=== PATIENT | female | born 1985 | race Caucasian/White ===

== ENCOUNTER 2018-03-28 13:38 | Inpatient (IN) | payer BC ==
[2018-03-28 13:38] VITALS: BMI 30.2
[2018-03-28] MEDS ORDERED: Iohexol 240 (50 ml) PO STA (15:26)
[2018-03-28] MEDS ORDERED: Sodium Chloride 0.9% 1,000 ML IV STA (15:27)
[2018-03-28] MEDS ORDERED: Iohexol 240 (50 ml) ONE (15:46)
[2018-03-28 15:47] LABS: BASO # 0.1 K/uL (0.0-0.2); BASO % 0.3 % (0.0-2.0); HEMOGLOBIN 13.8 g/dL (12.0-16.0); LYMPH # 1.3 K/uL (1.0-4.3); LYMPH % 7.3 % (20.0-40.0); MEAN CELL VOLUME 85.8 fl (81.0-99.0); MEAN CORPUSCULAR HEMOGLOBIN 27.6 pg (27.0-31.0); MEAN CORPUSCULAR HGB CONC 32.2 g/dL (33.0-37.0); MEAN PLATELET VOLUME 7.2 fl (7.2-11.7); MONO # 0.8 K/uL (0.0-0.8); MONO % 4.2 % (0.0-10.0); NEUT % 88.2 % (50.0-75.0); PLATELET COUNT 332 K/uL (130-400); RBC 4.99 Mil/uL (3.80-5.20); RED CELL DISTRIBUTION WIDTH 13.4 % (11.5-14.5); WHITE BLOOD COUNT 18.1 K/uL (4.8-10.8)
[2018-03-28 16:18] LABS: BLOOD UREA NITROGEN 12 mg/dl (7-17); CALCIUM 9.8 mg/dL (8.4-10.2); GFR NON-AFRICAN AMERICAN > 60
[2018-03-28 16:20] LABS: LYMPHOCYTE 7 % (20-50); MONOCYTE 2 % (0-10); NEUTROPHIL 91 % (42-75); PLATELET ESTIMATE NORMAL (NORMAL); TOTAL CELLS COUNTED 100
[2018-03-28 16:24] LABS: ALB/GLOB RATIO 1.2 (1.0-2.1); ALBUMIN 4.7 g/dL (3.5-5.0); ALT/SGPT 26 U/L (9-52); AST/SGOT 36 U/L (14-36)
[2018-03-28 16:26] LABS: SQUAMOUS EPITHIAL 11 /hpf (0-5); URINE BACTERIA MANY (<OCC); URINE BILIRUBIN NEGATIVE (NEGATIVE); URINE BLOOD NEGATIVE (NEGATIVE); URINE CLARITY CLOUDY (Clear); URINE COLOR YELLOW (YELLOW); URINE GLUCOSE (UA) NEG (NEGATIVE); URINE HYALINE CAST 0-2 /hpf (0-2); URINE LEUKOCYTE ESTERASE NEG Leu/uL (Negative); URINE PROTEIN 30 mg/dL (NEGATIVE); URINE UROBILINOGEN 0.2-1.0 mg/dL (0.2-1.0)
[2018-03-28] MEDS ORDERED: Iohexol 300 100 ML IJ ONE (17:30)
[2018-03-28] MEDS ORDERED: Sodium Chloride 0.9% 50 ML IV ONE (17:31)
[2018-03-28] MEDS ORDERED: cefTRIAXone (Rocephin) 1 gm Inj ONE (18:11)
--- NOTE | 2018-03-28 18:50 | CT ---
Date of service: 03/28/2018 PROCEDURE: CT Abdomen and Pelvis with contrast HISTORY: vomiting, LLQ pain, diarrhea COMPARISON: None available. TECHNIQUE: CT scan of the abdomen and pelvis was performed after administration of intravenous contrast. Oral contrast was administered. Coronal and sagittal reformatted images were obtained. Contrast dose: 95 mL Omnipaque 300 Radiation dose: Total exam DLP = 335.99 mGy-cm. This CT exam was performed using one or more of the following dose reduction techniques: Automated exposure control, adjustment of the mA and/or kV according to patient size, and/or use of iterative reconstruction technique. FINDINGS: LOWER THORAX: The visualized lungs are clear. LIVER: Normal in size with homogeneous enhancement. No gross lesion or ductal dilatation. GALLBLADDER AND BILE DUCTS: Is well distended. No calcified gallstones, wall thickening or pericholecystic fluid. PANCREAS: Normal in size with homogeneous enhancement. No gross lesion or ductal dilatation. SPLEEN: Normal in size and appearance. ADRENALS: The right adrenal gland is normal. There is mild thickening of the left adrenal gland without discrete nodule. KIDNEYS AND URETERS: Normal in size with homogeneous enhancement. No hydronephrosis. No solid mass. VASCULATURE: No aortic aneurysm. There are no atherosclerotic aortic calcifications. BOWEL: There is a nonobstructing jejunal-jejunal intussusception in the right mid abdominal bowel loops. The distal small bowel loops are normal in caliber. The ascending colon is normal in caliber. There is mild circumferential mural thickening in the distal transverse and left hemicolon. No bowel obstruction. APPENDIX: Normal appendix. PERITONEUM: No free fluid. No free air. LYMPH NODES: No enlarged lymph nodes. BLADDER: Partially decompressed. REPRODUCTIVE: The uterus is normal in size. BONES: No acute fracture. Within normal limits for the patient's age. OTHER FINDINGS: None. IMPRESSION: 1. Apparent mild circumferential mural thickening in the distal transverse and left hemicolon is nonspecific and could be related to underdistention however nonspecific acute infectious/inflammatory colitis is also a consideration. Clinical follow-up is advised. 2. Non-obstructing jejunal-jejunal intussusception in the proximal jejunal loops in the right mid abdomen.
--- NOTE | 2018-03-28 19:11 | ED PDOC ---
HPI: Abdomen Time Seen by Provider: 03/28/18 14:02 Chief Complaint (Nursing): GI Problem Chief Complaint (Provider): Vomiting, abdominal cramping History Per: Patient History/Exam Limitations: no limitations Onset/Duration Of Symptoms: Days Outside of [place] travel?: No Current Symptoms Are (Timing): Still Present Additional Complaint(s): 32 yo female with history of migraines presents for evaluation of intermittent vomiting and abdominal cramping for 2 weeks. Pt states she has had similar in the past but does not last as long. Pt states she was seen at [facility] and prescribed zofran. Pt without fever/chills. PT states she was feeling a little better while using zofran and rcame to ER for evaluation of continued vomiting. Pt denies urinary symptoms Past Medical History Reviewed: Historical Data, Nursing Documentation, Vital Signs Vital Signs: Last Vital Signs Temp 98.5 F 03/28/18 13:48 Pulse 67 03/28/18 13:48 Resp 18 03/28/18 13:48 BP 128/79 03/28/18 13:48 Pulse Ox 98 03/28/18 13:48 - Medical History PMH: Bipolar Disorder, Migraine Denies: Chronic Kidney Disease - Surgical History Surgical History: No Surg Hx - Family History Family History: States: Unknown Family Hx - Immunization History Hx Influenza Vaccination: No Hx Pneumococcal Vaccination: No - Home Medications Home Medications: Ambulatory Orders Medication Instructions Recorded No Known Home Med 03/28/18 - Allergies Allergies/Adverse Reactions: Allergies Allergy/AdvReac Type Severity Reaction Status Date / Time No Known Allergies Allergy Verified 03/28/18 13:47 Review of Systems ROS Statement: Except As Marked, All Systems Reviewed And Found Negative Constitutional: Negative for: Fever, Chills, Sweats Cardiovascular: Negative for: Chest Pain, Palpitations Respiratory: Negative for: Cough, Shortness of Breath Gastrointestinal: Positive for: Nausea, Vomiting, Abdominal Pain. Negative for: Diarrhea Genitourinary Female: Negative for: Dysuria, Frequency, Hematuria, Vaginal Discharge, Vaginal Bleeding Physical Exam - Reviewed Nursing Documentation Reviewed: Yes Vital Signs Reviewed: Yes - Physical Exam Appears: Positive for: Well, Non-toxic, No Acute Distress Head Exam: Positive for: ATRAUMATIC, NORMAL INSPECTION, NORMOCEPHALIC Skin: Positive for: Normal Color, Warm, DRY Eye Exam: Positive for: Normal appearance ENT: Positive for: Normal ENT Inspection Neck: Positive for: Normal, Painless ROM Cardiovascular/Chest: Positive for: Regular Rate, Rhythm Respiratory: Positive for: Normal Breath Sounds. Negative for: Accessory Muscle Use, Respiratory Distress Gastrointestinal/Abdominal: Positive for: Normal Exam, Soft. Negative for: Tenderness (LLQ ), Guarding, Rebound, Hernia Back: Positive for: Normal Inspection Extremity: Positive for: Normal ROM Neurologic/Psych: Positive for: Alert, Oriented - Laboratory Results Result Diagrams: 03/28/18 14:47 03/28/18 14:47 - ECG O2 Sat by Pulse Oximetry: 98 Pulse Ox Interpretation: Normal Medical Decision Making Medical Decision Making: Intussusception and possible colitis on CT abdomen and pelvis. (+) many bacteria on urine exam 1914 - Discussed with Dr. Albarran, residential service technician. States she discussed with Dr. Lemos. 193 - Dr. Wood aware. 2029 - Dr. Whalen aware of case, NPO Disposition - Clinical Impression Clinical Impression: Intussusception intestine - Patient ED Disposition Is Patient to be Admitted: Yes - Disposition Disposition Time: 20:30 Condition: GOOD Instructions: Intussusception Forms: [employer] (Kinyarwanda)
--- NOTE | 2018-03-28 20:01 | CP.PCM.CON ---
<Mary Albarran - Last Filed: 03/28/18 19:56> History of Present Illness - History of Present Illness History of Present Illness: General Surgery - Dr. Lemos 32 yo F w/ no pmh presenting with intractable nausea and vomiting x2 weeks. Pt states that she's had similar episodes in the past for a few years, but this episode has been more prolonged than usual and doesn't seem to be resolving. She describes 2 weeks of persistent nausea and vomiting of gastric contents, non-bloody/nonbilious, with inability to keep anything down. Pt also states she has intermittent mild-moderate cramping abdominal pain located in the Left mid abdomen and Left lower quadrant, non-radiating. She was initially having normal BMs but recently had several episode of diarrhea and an episode of bloody stool yesterday. Pt also admits to chills, but denies any Fevers, Chest pain, Shortness of Breathe, Dysuria, Hematuria. Pt has been hospitalized for similar symptoms about 1 year ago which resolved spontaneously after 1-2 days. PMH: none PSH: Tubal ligation Meds: Mylanta and Zofran prn NKDA Denies Tobacco Use, Social ETOH use, Occasional marijuana use Review of Systems - Review of Systems All systems: reviewed and no additional remarkable complaints except (as per HPI) Past Patient History - Infectious Disease Hx of Infectious Diseases: None - Past Medical History & Family History Past Medical History?: No - Past Social History Smoking Status: Never Smoked - CARDIAC Hx Cardiac Disorders: No - PULMONARY Hx Respiratory Disorders: No - NEUROLOGICAL Hx Migraine: Yes - HEENT Hx HEENT Problems: No - RENAL Hx Chronic Kidney Disease: No - ENDOCRINE/METABOLIC Hx Endocrine Disorders: No - HEMATOLOGICAL/ONCOLOGICAL Hx Blood Disorders: No - INTEGUMENTARY Hx Dermatological Problems: No - MUSCULOSKELETAL/RHEUMATOLOGICAL Hx Musculoskeletal Disorders: No Hx Falls: No - GASTROINTESTINAL Hx Gastrointestinal Disorders: No - GENITOURINARY/GYNECOLOGICAL Hx Genitourinary Disorders: No - PSYCHIATRIC Hx Bipolar Disorder: Yes - SURGICAL HISTORY Hx Surgeries: Yes Hx Tubal Ligation: Yes Other/Comment: TOP A TEENAGER - ANESTHESIA Hx Anesthesia: Yes Hx Anesthesia Reactions: No Hx Malignant Hyperthermia: No Meds Allergies/Adverse Reactions: Allergies Allergy/AdvReac Type Severity Reaction Status Date / Time No Known Allergies Allergy Verified 03/28/18 13:47 - Medications Medications: Current Medications Sodium Chloride (Sodium Chloride 0.9%) 1,000 mls @ 100 mls/hr IV .Q10H MINDY Stop: 03/29/18 19:54 Ondansetron HCl (Zofran Inj) 4 mg IVP Q4 PRN PRN Reason: Nausea/Vomiting Physical Exam - Constitutional Appears: No Acute Distress - Head Exam Head Exam: ATRAUMATIC, NORMAL INSPECTION, NORMOCEPHALIC - Eye Exam Eye Exam: Normal appearance - Respiratory Exam Respiratory Exam: NORMAL BREATHING PATTERN. absent: Respiratory Distress - Cardiovascular Exam Cardiovascular Exam: REGULAR RHYTHM - GI/Abdominal Exam GI & Abdominal Exam: Soft, Tenderness. absent: Distended, Firm, Guarding, Hernia, Rebound Additional comments: ttp in the Left mid abdomen - Neurological Exam Neurological exam: Alert, Oriented x3 - Psychiatric Exam Psychiatric exam: Normal Affect, Normal Mood - Skin Skin Exam: Dry, Intact Results - Vital Signs Recent Vital Signs: Last Vital Signs Temp 98.5 F 03/28/18 13:48 Pulse 67 03/28/18 13:48 Resp 18 03/28/18 13:48 BP 128/79 03/28/18 13:48 Pulse Ox 98 03/28/18 19:46 - Labs Result Diagrams: 03/28/18 14:47 03/28/18 14:47 Labs: Laboratory Results - last 24 hr 03/28/18 03/28/18 03/28/18 14:47 14:47 15:45 WBC 18.1 H RBC 4.99 Hgb 13.8 Hct 42.8 MCV 85.8 MCH 27.6 MCHC 32.2 L RDW 13.4 Plt Count 332 MPV 7.2 Neut % (Auto) 88.2 H Lymph % (Auto) 7.3 L [place] % (Auto) 4.2 Eos % (Auto) 0.0 Baso % (Auto) 0.3 Neut # (Auto) 16.0 H Lymph # (Auto) 1.3 [place] # (Auto) 0.8 Eos # (Auto) 0.0 Baso # (Auto) 0.1 Neutrophils % (Manual) 91 H Lymphocytes % (Manual) 7 L Monocytes % (Manual) 2 Platelet Estimate Normal RBC Morphology Normal Sodium 137 Potassium 4.2 Chloride 101 Carbon Dioxide 24 Anion Gap 16 BUN 12 Creatinine 0.5 L Est GFR ( Amer) > 60 Est GFR (Non-Af Amer) > 60 Random Glucose 107 H Calcium 9.8 Total Bilirubin 0.7 AST 36 ALT 26 Alkaline Phosphatase 47 Total Protein 8.7 H Albumin 4.7 Globulin 4.0 H Albumin/Globulin Ratio 1.2 Urine Color Yellow Urine Clarity Cloudy Urine pH 8.0 Ur Specific Anna 1.025 Urine Protein 30 Urine Glucose (UA) Neg Urine Ketones 20 Urine Blood Negative Urine Nitrate Negative Urine Bilirubin Negative Urine Urobilinogen 0.2-1.0 Ur Leukocyte Esterase Neg Urine RBC (Auto) 3 Urine Microscopic WBC 3 Ur Squamous Epith Cells 11 H Urine Bacteria Many H Hyaline Casts 0-2 - Imaging and Cardiology CT scan - abdomen Status: Image reviewed by me, Report reviewed by me Assessment & Plan - Assessment and Plan (Free Text) Assessment: 32 yo F w/ recurrent intractable nausea/vomiting and CT findings suggestive of intussusception -Admitted to medical service -Basim NPO -IVF hydration -Pain control and anti-emetics prn -Will assess in AM for possible Diagnostic Laparoscopy DW Dr. Canelo Albarran PGY4 <Florencio Lemos - Last Filed: 03/28/18 22:24> History of Present Illness - History of Present Illness History of Present Illness: Patient was seen and examined at the bedside. Agree with resident's note above. Meds - Medications Medications: Current Medications Sodium Chloride (Sodium Chloride 0.9%) 1,000 mls @ 100 mls/hr IV .Q10H MINDY Stop: 03/29/18 19:54 Last Admin: 03/28/18 20:55 Dose: 100 mls/hr Ondansetron HCl (Zofran Inj) 4 mg IVP Q4 PRN PRN Reason: Nausea/Vomiting Physical Exam - GI/Abdominal Exam Additional comments: soft, very mildly tender in the epigastric region, ND, BS+, no rebound, no guarding Results - Vital Signs Recent Vital Signs: Last Vital Signs Temp 98.9 F 03/28/18 21:59 Pulse 72 03/28/18 21:59 Resp 18 03/28/18 21:59 BP 136/81 03/28/18 21:59 Pulse Ox 99 03/28/18 21:59 - Labs Result Diagrams: 03/28/18 14:47 03/28/18 14:47 Labs: Laboratory Results - last 24 hr 03/28/18 03/28/18 03/28/18 14:47 14:47 15:45 WBC 18.1 H RBC 4.99 Hgb 13.8 Hct 42.8 MCV 85.8 MCH 27.6 MCHC 32.2 L RDW 13.4 Plt Count 332 MPV 7.2 Neut % (Auto) 88.2 H Lymph % (Auto) 7.3 L [place] % (Auto) 4.2 Eos % (Auto) 0.0 Baso % (Auto) 0.3 Neut # (Auto) 16.0 H Lymph # (Auto) 1.3 [place] # (Auto) 0.8 Eos # (Auto) 0.0 Baso # (Auto) 0.1 Neutrophils % (Manual) 91 H Lymphocytes % (Manual) 7 L Monocytes % (Manual) 2 Platelet Estimate Normal RBC Morphology Normal Sodium 137 Potassium 4.2 Chloride 101 Carbon Dioxide 24 Anion Gap 16 BUN 12 Creatinine 0.5 L Est GFR ( Amer) > 60 Est GFR (Non-Af Amer) > 60 Random Glucose 107 H Lactic Acid Calcium 9.8 Total Bilirubin 0.7 AST 36 ALT 26 Alkaline Phosphatase 47 Total Protein 8.7 H Albumin 4.7 Globulin 4.0 H Albumin/Globulin Ratio 1.2 Urine Color Yellow Urine Clarity Cloudy Urine pH 8.0 Ur Specific Anna 1.025 Urine Protein 30 Urine Glucose (UA) Neg Urine Ketones 20 Urine Blood Negative Urine Nitrate Negative Urine Bilirubin Negative Urine Urobilinogen 0.2-1.0 Ur Leukocyte Esterase Neg Urine RBC (Auto) 3 Urine Microscopic WBC 3 Ur Squamous Epith Cells 11 H Urine Bacteria Many H Hyaline Casts 0-2 03/28/18 21:19 WBC RBC Hgb Hct MCV MCH MCHC RDW Plt Count MPV Neut % (Auto) Lymph % (Auto) [place] % (Auto) Eos % (Auto) Baso % (Auto) Neut # (Auto) Lymph # (Auto) [place] # (Auto) Eos # (Auto) Baso # (Auto) Neutrophils % (Manual) Lymphocytes % (Manual) Monocytes % (Manual) Platelet Estimate RBC Morphology Sodium Potassium Chloride Carbon Dioxide Anion Gap BUN Creatinine Est GFR ( Amer) Est GFR (Non-Af Amer) Random Glucose Lactic Acid 0.6 L Calcium Total Bilirubin AST ALT Alkaline Phosphatase Total Protein Albumin Globulin Albumin/Globulin Ratio Urine Color Urine Clarity Urine pH Ur Specific Anna Urine Protein Urine Glucose (UA) Urine Ketones Urine Blood Urine Nitrate Urine Bilirubin Urine Urobilinogen Ur Leukocyte Esterase Urine RBC (Auto) Urine Microscopic WBC Ur Squamous Epith Cells Urine Bacteria Hyaline Casts Assessment & Plan - Assessment and Plan (Free Text) Plan: - Keep NPO - 1L bolus IV - IV fluid hydration - pain control - Zofran prn - Plan for Diagnostic Laparoscopy, exploratory laparotomy tomorrow - repeat labs in am - Will follow
[2018-03-28] MEDS: Sodium Chloride 0.9% 1,000 ML IV SCH (20:55)
[2018-03-28] MEDS: Lactated Ringer's 1,000 ML IV SCH (22:45)
[2018-03-29] MEDS: Lactated Ringer's 1,000 ML IV SCH (01:03)
[2018-03-29 06:05] LABS: BASO % 0.3 % (0.0-2.0); EOS # 0.1 K/uL (0.0-0.7); EOS % 0.6 % (0.0-4.0); LYMPH # 3.3 K/uL (1.0-4.3); LYMPH % 20.6 % (20.0-40.0); MEAN CELL VOLUME 84.5 fl (81.0-99.0); MEAN CORPUSCULAR HEMOGLOBIN 27.4 pg (27.0-31.0); MEAN CORPUSCULAR HGB CONC 32.5 g/dL (33.0-37.0); MEAN PLATELET VOLUME 7.3 fl (7.2-11.7); MONO # 1.1 K/uL (0.0-0.8); MONO % 6.8 % (0.0-10.0); NEUT # 11.5 K/uL (1.8-7.0); NEUT % 71.7 % (50.0-75.0); NRBC % 0.1 % (0.0-0.0); RBC 4.37 Mil/uL (3.80-5.20); RED CELL DISTRIBUTION WIDTH 13.3 % (11.5-14.5)
[2018-03-29 06:09] LABS: INR 1.1; PROTHROMBIN TIME 12.5 Seconds (9.8-13.1)
[2018-03-29 06:11] LABS: PARTIAL THROMBOPLASTIN TIME 28.9 Seconds (25.6-37.1)
[2018-03-29 06:27] LABS: ALB/GLOB RATIO 1.2 (1.0-2.1); ALBUMIN 3.7 g/dL (3.5-5.0); ALT/SGPT 23 U/L (9-52); AST/SGOT 18 U/L (14-36); BLOOD UREA NITROGEN 8 mg/dl (7-17); CALCIUM 8.9 mg/dL (8.4-10.2); GFR NON-AFRICAN AMERICAN > 60
--- NOTE | 2018-03-29 07:57 | CP.PCM.HP ---
History of Present Illness - History of Present Illness History of Present Illness: 32 yo F with no known chronic conditions admitted due to intractable nausea, vomiting, and findings consistent with intussusception and colitis on CT. Pt presented to ED with nausea and nonbloody nonbilious vomiting x 2 weeks, inability to tolerate PO intake, and intermittent mild-modertate cramping in mid-abdomen, left sided, as well as in LLQ. Pt also endorses that she had normal BMs at first but prior to coming to ED had diarrhea with blood. Pt states that she has had similar episodes in the past for a few years, but they self- resolved. ROS: chills, feels febrile, GI symptoms as in HPI. no chest pain, difficulty breathing, issues with urination. Past Med Hx: none Past Surg Hx: tubal ligation Social hx: denies tobacco use, social alcohol, occasional marijuana Fam hx: NC Meds: Mylanta and Zofran prn Allergies: NKDA In ED: Vitals: afebrile, pulse 67 bpm, BP 128/79, RRc18/min, SpO2 98% on room air WBC 18k CT abd/pelvis: apparent mild circumferential mural thickening in the distal transverse and left hemicolon is nonspecific and could be related to underdistention, however nonspecific acute infectious/inflammatory colitis also consideration. Nonobstructing jejunal-jejunal intussusception in proximal jejunal loops in right mid-abdomen. Blood/urine cx collected carlito mckeon Pt seen this am, discussed w/ Dr. Whalen. No acute events overnight; nausea alleviated with medication. Planned for OR today w/ surg team. Present on Admission - Present on Admission Any Indicators Present on Admission: No Review of Systems - Review of Systems All systems: reviewed and no additional remarkable complaints except Review of Systems: as per hpi Past Patient History - Infectious Disease Hx of Infectious Diseases: None - Past Medical History & Family History Past Medical History?: Yes - Past Social History Smoking Status: Former Smoker Alcohol: Occasional Drugs: Cannabis - CARDIAC Hx Cardiac Disorders: No - PULMONARY Hx Respiratory Disorders: No - NEUROLOGICAL Hx Neurological Disorder: Yes Hx Migraine: Yes - HEENT Hx HEENT Problems: Yes Other/Comment: eyeglasses - RENAL Hx Chronic Kidney Disease: No - ENDOCRINE/METABOLIC Hx Endocrine Disorders: No - HEMATOLOGICAL/ONCOLOGICAL Hx Blood Disorders: No Hx AIDS: No Hx Hepatitis C: No Hx Human Immunodeficiency Virus (HIV): No - INTEGUMENTARY Hx Dermatological Problems: No - MUSCULOSKELETAL/RHEUMATOLOGICAL Hx Musculoskeletal Disorders: No Hx Falls: No - GASTROINTESTINAL Hx Gastrointestinal Disorders: No - GENITOURINARY/GYNECOLOGICAL Hx Genitourinary Disorders: No - PSYCHIATRIC Hx Psychophysiologic Disorder: Yes Hx Bipolar Disorder: Yes Hx Substance Use: Yes (occasional marijuana use) - SURGICAL HISTORY Hx Surgeries: Yes Hx Tubal Ligation: Yes (5 yrs ago) 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 - ANESTHESIA Hx Anesthesia: Yes Hx Anesthesia Reactions: No Hx Malignant Hyperthermia: No Meds Allergies/Adverse Reactions: Allergies Allergy/AdvReac Type Severity Reaction Status Date / Time No Known Allergies Allergy Verified 03/28/18 13:47 Physical Exam - Constitutional Appears: No Acute Distress - Head Exam Head Exam: NORMAL INSPECTION Additional comments: wearing glasses - Eye Exam Eye Exam: Normal appearance - ENT Exam ENT Exam: Mucous Membranes Moist - Respiratory Exam Respiratory Exam: Clear to Auscultation Bilateral, NORMAL BREATHING PATTERN - Cardiovascular Exam Cardiovascular Exam: REGULAR RHYTHM, +S1, +S2 - GI/Abdominal Exam GI & Abdominal Exam: Normal Bowel Sounds, Soft, Tenderness - Extremities Exam Extremities exam: Positive for: normal inspection. Negative for: calf tenderness - Back Exam Back exam: NORMAL INSPECTION - Neurological Exam Neurological exam: Alert, Oriented x3 - Psychiatric Exam Psychiatric exam: Normal Mood - Skin Skin Exam: Warm Results - Vital Signs Recent Vital Signs: Last Vital Signs Temp 98.6 F 03/28/18 22:50 Pulse 75 03/28/18 22:50 Resp 18 03/28/18 22:50 BP 99/60 L 03/28/18 22:50 Pulse Ox 98 03/28/18 22:50 - Labs Result Diagrams: 03/29/18 05:30 03/29/18 05:30 Labs: Laboratory Results - last 24 hr 03/28/18 03/28/18 03/28/18 14:47 14:47 15:45 WBC 18.1 H RBC 4.99 Hgb 13.8 Hct 42.8 MCV 85.8 MCH 27.6 MCHC 32.2 L RDW 13.4 Plt Count 332 MPV 7.2 Neut % (Auto) 88.2 H Lymph % (Auto) 7.3 L Gray % (Auto) 4.2 Eos % (Auto) 0.0 Baso % (Auto) 0.3 Neut # (Auto) 16.0 H Lymph # (Auto) 1.3 Gray # (Auto) 0.8 Eos # (Auto) 0.0 Baso # (Auto) 0.1 Neutrophils % (Manual) 91 H Lymphocytes % (Manual) 7 L Monocytes % (Manual) 2 Platelet Estimate Normal RBC Morphology Normal PT INR APTT Sodium 137 Potassium 4.2 Chloride 101 Carbon Dioxide 24 Anion Gap 16 BUN 12 Creatinine 0.5 L Est GFR ( Amer) > 60 Est GFR (Non-Af Amer) > 60 Random Glucose 107 H Lactic Acid Calcium 9.8 Phosphorus Magnesium Total Bilirubin 0.7 AST 36 ALT 26 Alkaline Phosphatase 47 Total Protein 8.7 H Albumin 4.7 Globulin 4.0 H Albumin/Globulin Ratio 1.2 Urine Color Yellow Urine Clarity Cloudy Urine pH 8.0 Ur Specific [place] 1.025 Urine Protein 30 Urine Glucose (UA) Neg Urine Ketones 20 Urine Blood Negative Urine Nitrate Negative Urine Bilirubin Negative Urine Urobilinogen 0.2-1.0 Ur Leukocyte Esterase Neg Urine RBC (Auto) 3 Urine Microscopic WBC 3 Ur Squamous Epith Cells 11 H Urine Bacteria Many H Hyaline Casts 0-2 Blood Type Antibody Screen BBK History Checked 03/28/18 03/29/18 03/29/18 21:19 05:30 05:30 WBC RBC Hgb Hct MCV MCH MCHC RDW Plt Count MPV Neut % (Auto) Lymph % (Auto) Gray % (Auto) Eos % (Auto) Baso % (Auto) Neut # (Auto) Lymph # (Auto) Gray # (Auto) Eos # (Auto) Baso # (Auto) Neutrophils % (Manual) Lymphocytes % (Manual) Monocytes % (Manual) Platelet Estimate RBC Morphology PT 12.5 INR 1.1 APTT 28.9 Sodium 137 Potassium 3.4 L Chloride 105 Carbon Dioxide 23 Anion Gap 12 BUN 8 Creatinine 0.5 L Est GFR ( Amer) > 60 Est GFR (Non-Af Amer) > 60 Random Glucose 90 Lactic Acid 0.6 L Calcium 8.9 Phosphorus 3.3 Magnesium 2.3 Total Bilirubin 0.4 AST 18 ALT 23 Alkaline Phosphatase 43 Total Protein 6.7 Albumin 3.7 Globulin 3.0 Albumin/Globulin Ratio 1.2 Urine Color Urine Clarity Urine pH Ur Specific [place] Urine Protein Urine Glucose (UA) Urine Ketones Urine Blood Urine Nitrate Urine Bilirubin Urine Urobilinogen Ur Leukocyte Esterase Urine RBC (Auto) Urine Microscopic WBC Ur Squamous Epith Cells Urine Bacteria Hyaline Casts Blood Type Antibody Screen BBK History Checked 03/29/18 03/29/18 05:30 05:30 WBC 16.0 H RBC 4.37 Hgb 12.0 Hct 36.9 MCV 84.5 MCH 27.4 MCHC 32.5 L RDW 13.3 Plt Count 259 MPV 7.3 Neut % (Auto) 71.7 Lymph % (Auto) 20.6 Gray % (Auto) 6.8 Eos % (Auto) 0.6 Baso % (Auto) 0.3 Neut # (Auto) 11.5 H Lymph # (Auto) 3.3 Gray # (Auto) 1.1 H Eos # (Auto) 0.1 Baso # (Auto) 0.0 Neutrophils % (Manual) Lymphocytes % (Manual) Monocytes % (Manual) Platelet Estimate RBC Morphology PT INR APTT Sodium Potassium Chloride Carbon Dioxide Anion Gap BUN Creatinine Est GFR ( Amer) Est GFR (Non-Af Amer) Random Glucose Lactic Acid Calcium Phosphorus Magnesium Total Bilirubin AST ALT Alkaline Phosphatase Total Protein Albumin Globulin Albumin/Globulin Ratio Urine Color Urine Clarity Urine pH Ur Specific [place] Urine Protein Urine Glucose (UA) Urine Ketones Urine Blood Urine Nitrate Urine Bilirubin Urine Urobilinogen Ur Leukocyte Esterase Urine RBC (Auto) Urine Microscopic WBC Ur Squamous Epith Cells Urine Bacteria Hyaline Casts Blood Type A POSITIVE Antibody Screen Negative BBK History Checked No verified bt Assessment & Plan (1) Intussusception Status: Acute - Assessment and Plan (Free Text) Plan: - Admitted to [facility] - WBC 18--> 16k - Surgery consulted, Dr. Lemos, recs appreciated - NPO, OR today w/ gen surg - K 3.4; replete - GI consulted, Dr. Castaneda, recs appreciated - Continue with antibiotics - ceftriaxone 1gm daily - Zofran Q4 PRN - F/u blood/urine cx - PPI - SCDs
[2018-03-29] MEDS: Sodium Chloride 0.9% 1,000 ML IV SCH (08:34)
[2018-03-29] MEDS: Potassium CL 10mEq/100ml 100 ML IVPB SCH ×2 (08:34→09:06)
[2018-03-29] MEDS: Pantoprazole 40 MG in Sodium Chloride 0.9% 100 ML IVPB SCH (09:04)
--- NOTE | 2018-03-29 11:02 | CP.PCM.PN ---
<LuanTeresa Arnold - Last Filed: 03/29/18 10:55> Subjective - Date & Time of Evaluation Date of Evaluation: 03/29/18 Time of Evaluation: 10:55 - Subjective Subjective: General Surgery Pt seen and examined this AM with Dr. Sweeney. She denies having any abdominal pain at this time. She reports having nausea around 4am today (7 hours ago) and denies vomiting. (+) Flatus, (+) BM Labs and vitals noted PE Gen: Pt sitting in bed in NAD Skin: warm and dry Cardio: s1s2 RRR Lungs: CTA bilaterally Abd: Soft NTND Extr: (-) calf tenderness bilaterally A/P Intussusception Continue IVF Keep NPO for now Abd Xray ordered Will need small bowel series Recommend pt to be scoped by GI to evaluate how close the mass is to the Ligament of Treitz prior to surgical intervention. Objective - Vital Signs/Intake and Output Vital Signs (last 24 hours): Temp Pulse Resp BP Pulse Ox 98.2 F 61 20 121/74 99 03/29/18 08:00 03/29/18 08:00 03/29/18 08:00 03/29/18 08:00 03/29/18 08:00 - Medications Medications: Current Medications Sodium Chloride (Sodium Chloride 0.9%) 1,000 mls @ 100 mls/hr IV .Q10H [facility]Y Stop: 03/29/18 19:54 Last Admin: 03/29/18 08:34 Dose: 100 mls/hr Pantoprazole Sodium 40 mg/ (Sodium Chloride) 100 mls @ 100 mls/hr IVPB DAILY [facility] Last Admin: 03/29/18 09:04 Dose: 100 mls/hr Ceftriaxone Sodium 1 gm/ (Sodium Chloride) 100 mls @ 100 mls/hr IVPB DAILY [facility]; Protocol Last Admin: 03/29/18 09:05 Dose: 100 mls/hr Ondansetron HCl (Zofran Inj) 4 mg IVP Q4 PRN PRN Reason: Nausea/Vomiting Last Admin: 03/29/18 04:19 Dose: 4 mg - Labs Labs: 03/29/18 05:30 03/29/18 05:30 PT 12.5 Seconds (9.8-13.1) 03/29/18 05:30 INR 1.1 03/29/18 05:30 APTT 28.9 Seconds (25.6-37.1) 03/29/18 05:30 <Alexander Sweeney - Last Filed: 03/29/18 11:07> Objective - Vital Signs/Intake and Output Vital Signs (last 24 hours): Temp Pulse Resp BP Pulse Ox 98.2 F 61 20 121/74 99 03/29/18 08:00 03/29/18 08:00 03/29/18 08:00 03/29/18 08:00 03/29/18 08:00 - Medications Medications: Current Medications Sodium Chloride (Sodium Chloride 0.9%) 1,000 mls @ 100 mls/hr IV .Q10H MINDY Stop: 03/29/18 19:54 Last Admin: 03/29/18 08:34 Dose: 100 mls/hr Pantoprazole Sodium 40 mg/ (Sodium Chloride) 100 mls @ 100 mls/hr IVPB DAILY [facility] Last Admin: 03/29/18 09:04 Dose: 100 mls/hr Ceftriaxone Sodium 1 gm/ (Sodium Chloride) 100 mls @ 100 mls/hr IVPB DAILY [facility]; Protocol Last Admin: 03/29/18 09:05 Dose: 100 mls/hr Ondansetron HCl (Zofran Inj) 4 mg IVP Q4 PRN PRN Reason: Nausea/Vomiting Last Admin: 03/29/18 04:19 Dose: 4 mg - Labs Labs: 03/29/18 05:30 03/29/18 05:30 PT 12.5 Seconds (9.8-13.1) 03/29/18 05:30 INR 1.1 03/29/18 05:30 APTT 28.9 Seconds (25.6-37.1) 03/29/18 05:30 Assessment and Plan - Assessment and Plan (Free Text) Plan: pt without any complaints, no further episodes of vomiting, +flatus, BM no other acute complaints. abd: soft, NT, ND, no peritoneal signs a/p NPO zofran prn IVF f/u GI for EGD Small bowel series
--- NOTE | 2018-03-29 12:51 | CON ---
DATE: 03/29/2018 REFERRING PHYSICIAN: Fei Whalen MD. REASON FOR CONSULTATION: Abdominal pain. HISTORY OF PRESENT ILLNESS: This is a 32-year-old female with history of no nausea, vomiting, or abdominal pain, felt to have intussusception. The patient has this pain before in the left lower quadrant. No nausea. No vomiting. No diarrhea. Currently lying comfortably in bed, in no apparent distress. PAST MEDICAL HISTORY: As above. PAST SURGICAL HISTORY: As above. MEDICATIONS: Have been reviewed. REVIEW OF SYSTEMS: All other systems have been reviewed and negative apart from the HPI. PHYSICAL EXAMINATION: VITAL SIGNS: Here in the hospital, grossly unremarkable. GENERAL: This is a pleasant young female lying in comfortably in bed, in no apparent distress. HEENT: Head, normocephalic and atraumatic. Eyes, pupils are equally reactive to light bilaterally. There is no conjunctival icterus, no pallor. NECK: Supple. Normal range of motion. No lymphadenopathy appreciated. LUNGS: Coarse breath sounds bilaterally. HEART: S1 and S2, regular rate and rhythm. No murmurs appreciated. ABDOMEN: Soft and nontender. Bowel sounds present. No rebound. No guarding. RECTAL: Deferred. EXTREMITIES: Pulses present bilaterally. SKIN: Warm, dry, and intact. NEUROLOGIC: Alert and oriented x3. LABORATORY DATA: Labs and radiology have been reviewed. WBC is 16.0, down from 18.1; hemoglobin is stable. INR 1.1. DIAGNOSTIC DATA: CAT scan of the abdomen and pelvis shows ____ intussusception and distal transverse colitis. ASSESSMENT AND PLAN: This is a 32-year-old female with colitis and intussusception. Plan for the OR. Antibiotics for now. Will need a colonoscopy at some point. N.p.o., pain control. Thank you for the consult. Franck Castaneda MD/ PhD cc: Fei Whalen MD
[2018-03-30 06:29] LABS: BASO % 0.3 % (0.0-2.0); EOS # 0.1 K/uL (0.0-0.7); EOS % 1.1 % (0.0-4.0); HEMOGLOBIN 12.8 g/dL (12.0-16.0); LYMPH # 2.6 K/uL (1.0-4.3); LYMPH % 24.8 % (20.0-40.0); MEAN CELL VOLUME 85.9 fl (81.0-99.0); MEAN CORPUSCULAR HEMOGLOBIN 27.5 pg (27.0-31.0); MEAN PLATELET VOLUME 7.2 fl (7.2-11.7); MONO # 0.7 K/uL (0.0-0.8); MONO % 6.4 % (0.0-10.0); NEUT # 7.1 K/uL (1.8-7.0); NEUT % 67.4 % (50.0-75.0); RBC 4.66 Mil/uL (3.80-5.20); RED CELL DISTRIBUTION WIDTH 13.3 % (11.5-14.5); WHITE BLOOD COUNT 10.6 K/uL (4.8-10.8)
[2018-03-30 06:55] LABS: ALB/GLOB RATIO 1.4 (1.0-2.1); ALT/SGPT 16 U/L (9-52); AST/SGOT 18 U/L (14-36); BLOOD UREA NITROGEN 7 mg/dl (7-17); CALCIUM 9.3 mg/dL (8.4-10.2); GFR NON-AFRICAN AMERICAN > 60
--- NOTE | 2018-03-30 08:07 | CP.PCM.PN ---
Subjective - Date & Time of Evaluation Date of Evaluation: 03/30/18 Time of Evaluation: 08:05 - Subjective Subjective: General Surgery: Dr Lemos Pt S&E. NAEO. Denies any pain, n/v, f/c at this time. Tolerated liquids yesterday. + flatus. Pending EGD this today. Objective - Vital Signs/Intake and Output Vital Signs (last 24 hours): Temp Pulse Resp BP Pulse Ox 98.1 F 85 19 114/70 97 03/30/18 08:04 03/30/18 08:04 03/30/18 08:04 03/30/18 08:04 03/30/18 08:04 - Medications Medications: Current Medications Pantoprazole Sodium 40 mg/ (Sodium Chloride) 100 mls @ 100 mls/hr IVPB DAILY [facility] Last Admin: 03/29/18 09:04 Dose: 100 mls/hr Ceftriaxone Sodium 1 gm/ (Sodium Chloride) 100 mls @ 100 mls/hr IVPB DAILY [facility]; Protocol Last Admin: 03/29/18 09:05 Dose: 100 mls/hr Ondansetron HCl (Zofran Inj) 4 mg IVP Q4 PRN PRN Reason: Nausea/Vomiting Last Admin: 03/29/18 04:19 Dose: 4 mg - Labs Labs: 03/30/18 05:35 03/30/18 05:35 PT 12.5 Seconds (9.8-13.1) 03/29/18 05:30 INR 1.1 03/29/18 05:30 APTT 28.9 Seconds (25.6-37.1) 03/29/18 05:30 - Constitutional Appears: Non-toxic, No Acute Distress - Respiratory Exam Respiratory Exam: absent: Respiratory Distress - Cardiovascular Exam Cardiovascular Exam: absent: Tachycardia - GI/Abdominal Exam GI & Abdominal Exam: Soft. 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
[2018-03-30] MEDS ORDERED: Lactated Ringer's 500 ML IV ONE (08:24)
[2018-03-30] MEDS ORDERED: Propofol 10 mg/ml Inj (20 ML) ONE ×2 (08:40→08:56)
[2018-03-30 09:32] VITALS: TEMP 98; O2SAT 100
[2018-03-30 09:33] VITALS: BP 106/66; PULSE 67; RESP 17
--- NOTE | 2018-03-30 09:48 | CP.PCM.PN ---
Subjective - Date & Time of Evaluation Date of Evaluation: 03/30/18 Time of Evaluation: 09:45 - Subjective Subjective: General Surgery Pt seen and examined this AM. She is s/p EGD. Report impression shows medium sized hiatal hernia, gastritis, normal duodenum, and examined portion of the jejunum was normal. She denies having any abdominal pain, N/V, or having BMs. (+) flatus. Afebrile Labs and vitals noted PE Gen: Pt laying in bed in NAD Skin: warm and dry Cardio: [id number] Lungs: CTA bilaterally Abd: Soft NTND Extr: (-) calf tenderness bilaterally A/P Intussusseption Keep NPO Continue IVF Pending KUB to evaluate contrast progression When clear, Upper GI series Objective - Vital Signs/Intake and Output Vital Signs (last 24 hours): Temp Pulse Resp BP Pulse Ox 98 F 67 17 106/66 100 03/30/18 09:15 03/30/18 09:15 03/30/18 09:15 03/30/18 09:15 03/30/18 09:15 Intake and Output: 03/30/18 03/30/18 06:59 18:59 Intake Total 200 Balance 200 - Medications Medications: Current Medications Pantoprazole Sodium 40 mg/ (Sodium Chloride) 100 mls @ 100 mls/hr IVPB DAILY [facility] Last Admin: 03/29/18 09:04 Dose: 100 mls/hr Ceftriaxone Sodium 1 gm/ (Sodium Chloride) 100 mls @ 100 mls/hr IVPB DAILY [facility]; Protocol Last Admin: 03/29/18 09:05 Dose: 100 mls/hr Ondansetron HCl (Zofran Inj) 4 mg IVP Q4 PRN PRN Reason: Nausea/Vomiting Last Admin: 03/29/18 04:19 Dose: 4 mg - Labs Labs: 03/30/18 05:35 03/30/18 05:35 PT 12.5 Seconds (9.8-13.1) 03/29/18 05:30 INR 1.1 03/29/18 05:30 APTT 28.9 Seconds (25.6-37.1) 03/29/18 05:30
--- NOTE | 2018-03-30 10:05 | RAD ---
Date of service: 03/29/2018 HISTORY: abdominal pain COMPARISON: Comparison made with prior CT scan the abdomen and pelvis 03/28/2018. FINDINGS: BOWEL: Oral contrast material (from prior CT scan abdomen pelvis 03/28/2018) incompletely opacifies the colon. No evidence of obstruction. No gross free intraperitoneal air BONES: Normal. OTHER FINDINGS: None. IMPRESSION: No evidence of acute mechanical bowel obstruction. Oral contrast material is seen opacifying the colon
--- NOTE | 2018-03-30 10:06 | CP.PCM.CON ---
Past Patient History - Infectious Disease Hx of Infectious Diseases: None - Past Medical History & Family History Past Medical History?: Yes - Past Social History Smoking Status: Former Smoker Alcohol: Occasional Drugs: Cannabis - CARDIAC Hx Cardiac Disorders: No - PULMONARY Hx Respiratory Disorders: No - NEUROLOGICAL Hx Neurological Disorder: Yes Hx Migraine: Yes - HEENT Hx HEENT Problems: Yes Other/Comment: eyeglasses - RENAL Hx Chronic Kidney Disease: No - ENDOCRINE/METABOLIC Hx Endocrine Disorders: No - HEMATOLOGICAL/ONCOLOGICAL Hx Blood Disorders: No Hx AIDS: No Hx Hepatitis C: No Hx Human Immunodeficiency Virus (HIV): No - INTEGUMENTARY Hx Dermatological Problems: No - MUSCULOSKELETAL/RHEUMATOLOGICAL Hx Musculoskeletal Disorders: No Hx Falls: No - GASTROINTESTINAL Hx Gastrointestinal Disorders: No - GENITOURINARY/GYNECOLOGICAL Hx Genitourinary Disorders: No - PSYCHIATRIC Hx Psychophysiologic Disorder: Yes Hx Bipolar Disorder: Yes Hx Substance Use: Yes (occasional marijuana use) - SURGICAL HISTORY Hx Surgeries: Yes Hx Tubal Ligation: Yes (5 yrs ago) 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 - ANESTHESIA Hx Anesthesia: Yes Hx Anesthesia Reactions: No Hx Malignant Hyperthermia: No Meds Allergies/Adverse Reactions: Allergies Allergy/AdvReac Type Severity Reaction Status Date / Time No Known Allergies Allergy Verified 03/28/18 13:47 - Medications Medications: Current Medications Pantoprazole Sodium 40 mg/ (Sodium Chloride) 100 mls @ 100 mls/hr IVPB DAILY [facility] Last Admin: 03/29/18 09:04 Dose: 100 mls/hr Ceftriaxone Sodium 1 gm/ (Sodium Chloride) 100 mls @ 100 mls/hr IVPB DAILY [facility]; Protocol Last Admin: 03/29/18 09:05 Dose: 100 mls/hr Ondansetron HCl (Zofran Inj) 4 mg IVP Q4 PRN PRN Reason: Nausea/Vomiting Last Admin: 03/29/18 04:19 Dose: 4 mg Results - Vital Signs Recent Vital Signs: Last Vital Signs Temp 98 F 03/30/18 09:15 Pulse 67 03/30/18 09:15 Resp 17 03/30/18 09:15 BP 106/66 03/30/18 09:15 Pulse Ox 100 03/30/18 09:15 - Labs Result Diagrams: 03/30/18 05:35 03/30/18 05:35 Labs: Laboratory Results - last 24 hr 03/30/18 03/30/18 05:35 05:35 WBC 10.6 RBC 4.66 Hgb 12.8 Hct 40.1 MCV 85.9 MCH 27.5 MCHC 32.0 L RDW 13.3 Plt Count 296 MPV 7.2 Neut % (Auto) 67.4 Lymph % (Auto) 24.8 [place] % (Auto) 6.4 Eos % (Auto) 1.1 Baso % (Auto) 0.3 Neut # (Auto) 7.1 H Lymph # (Auto) 2.6 [place] # (Auto) 0.7 Eos # (Auto) 0.1 Baso # (Auto) 0.0 Sodium 135 Potassium 4.2 Chloride 102 Carbon Dioxide 26 Anion Gap 11 BUN 7 Creatinine 0.6 L Est GFR ( Amer) > 60 Est GFR (Non-Af Amer) > 60 Random Glucose 89 Calcium 9.3 Magnesium 2.4 H Total Bilirubin 0.5 AST 18 ALT 16 Alkaline Phosphatase 43 Total Protein 7.0 Albumin 4.0 Globulin 3.0 Albumin/Globulin Ratio 1.4
--- NOTE | 2018-03-30 10:43 | CP.PCM.PN ---
Subjective - Date & Time of Evaluation Date of Evaluation: 03/30/18 Time of Evaluation: 10:37 - Subjective Subjective: SURGERY NOTE FOR DR. MCNULTY 32F seen and examined at bedside. Asymptomatic. Went for EGD this AM with no findings related to intussusception symptoms. Patient went for KUB after and contrast found to be in the colon. She will be started on regular diet, and is clear for discharge from surgery standpoint today if tolerating. She will be given instructions to follow up in the office and script for Upper GI series with small bowel follow through. Discussed with Dr. Canelo Olivarez, PGY3 Objective - Vital Signs/Intake and Output Vital Signs (last 24 hours): Temp Pulse Resp BP Pulse Ox 98 F 67 17 106/66 100 03/30/18 09:15 03/30/18 09:15 03/30/18 09:15 03/30/18 09:15 03/30/18 09:15 Intake and Output: 03/30/18 03/30/18 06:59 18:59 Intake Total 200 Balance 200 - Medications Medications: Current Medications Pantoprazole Sodium 40 mg/ (Sodium Chloride) 100 mls @ 100 mls/hr IVPB DAILY [facility] Last Admin: 03/29/18 09:04 Dose: 100 mls/hr Ceftriaxone Sodium 1 gm/ (Sodium Chloride) 100 mls @ 100 mls/hr IVPB DAILY [facility]; Protocol Last Admin: 03/29/18 09:05 Dose: 100 mls/hr Vancomycin HCl 1 gm/ Sodium (Chloride) 250 mls @ 166.667 mls/hr IVPB Q12 [facility]; Protocol Ondansetron HCl (Zofran Inj) 4 mg IVP Q4 PRN PRN Reason: Nausea/Vomiting Last Admin: 03/29/18 04:19 Dose: 4 mg - Labs Labs: 03/30/18 05:35 03/30/18 05:35 PT 12.5 Seconds (9.8-13.1) 03/29/18 05:30 INR 1.1 03/29/18 05:30 APTT 28.9 Seconds (25.6-37.1) 03/29/18 05:30
[2018-03-30] MEDS: Pantoprazole 40 MG in Sodium Chloride 0.9% 100 ML IVPB SCH (11:40)
--- NOTE | 2018-03-30 12:42 | RAD ---
Date of service: 03/30/2018 HISTORY: Abdominal pain COMPARISON: Comparison made with plain film radiograph the abdomen 03/29/[address] scan of the abdomen pelvis 03/28/2018. FINDINGS: BOWEL: Oral contrast material is seen within the large bowel. No evidence of acute mechanical bowel obstruction. No gross free intraperitoneal air identified on this limited supine exam. BONES: Normal. OTHER FINDINGS: None. IMPRESSION: No evidence of acute mechanical small bowel obstruction with oral contrast opacifying the large bowel.
--- NOTE | 2018-03-30 15:17 | CP.PCM.DIS ---
Provider - Provider Date of Admission: 03/28/18 20:33 Attending physician: Fei Whalen MD Consults: 03/28/18 22:27 Gastroenterology Consult Stat Comment: Consulting Provider: Franck Castaneda Consulting Physician: Franck Castaneda Reason for Consult: intussuseption General Surgery Consult Stat Comment: Consulting Provider: Florencio Lemos Consulting Physician: Florencio Lemos Reason for Consult: intussusseption 03/29/18 09:00 Social Work Referral Routine Comment: hx of substance use Physician Instructions: Reason For Exam: hx of marijuana use Time Spent in preparation of Discharge (in minutes): 20 Diagnosis - Discharge Diagnosis (1) Intussusception Status: Acute Hospital Course - Lab Results Lab Results: Micro Results 03/28/18 15:45 Urine,Clean Catch Urine Culture - Final 10-50,000 CFU/ML. MULTIPLE SPECIES. PROBABLE CONTAMINATION. 03/28/18 18:00 Blood-Venous Blood Culture - Preliminary Gram Positive Cocci 03/28/18 18:00 Blood-Venous Gram Stain - Final 03/28/18 17:30 Blood-Venous Blood Culture - Preliminary Gram Positive Cocci 03/28/18 17:30 Blood-Venous Gram Stain - Final Most Recent Lab Values WBC 10.6 K/uL (4.8-10.8) 03/30/18 05:35 RBC 4.66 Mil/uL (3.80-5.20) 03/30/18 05:35 Hgb 12.8 g/dL (12.0-16.0) 03/30/18 05:35 Hct 40.1 % (34.0-47.0) 03/30/18 05:35 MCV 85.9 fl (81.0-99.0) 03/30/18 05:35 MCH 27.5 pg (27.0-31.0) 03/30/18 05:35 MCHC 32.0 g/dL (33.0-37.0) L 03/30/18 05:35 RDW 13.3 % (11.5-14.5) 03/30/18 05:35 Plt Count 296 K/uL (130-400) 03/30/18 05:35 MPV 7.2 fl (7.2-11.7) 03/30/18 05:35 Neut % (Auto) 67.4 % (50.0-75.0) 03/30/18 05:35 Lymph % (Auto) 24.8 % (20.0-40.0) 03/30/18 05:35 [place] % (Auto) 6.4 % (0.0-10.0) 03/30/18 05:35 Eos % (Auto) 1.1 % (0.0-4.0) 03/30/18 05:35 Baso % (Auto) 0.3 % (0.0-2.0) 03/30/18 05:35 Neut # (Auto) 7.1 K/uL (1.8-7.0) H 03/30/18 05:35 Lymph # (Auto) 2.6 K/uL (1.0-4.3) 03/30/18 05:35 [place] # (Auto) 0.7 K/uL (0.0-0.8) 03/30/18 05:35 Eos # (Auto) 0.1 K/uL (0.0-0.7) 03/30/18 05:35 Baso # (Auto) 0.0 K/uL (0.0-0.2) 03/30/18 05:35 Neutrophils % (Manual) 91 % (42-75) H 03/28/18 14:47 Lymphocytes % (Manual) 7 % (20-50) L 03/28/18 14:47 Monocytes % (Manual) 2 % (0-10) 03/28/18 14:47 Platelet Estimate Normal (NORMAL) 03/28/18 14:47 RBC Morphology Normal (NORMAL) 03/28/18 14:47 PT 12.5 Seconds (9.8-13.1) 03/29/18 05:30 INR 1.1 03/29/18 05:30 APTT 28.9 Seconds (25.6-37.1) 03/29/18 05:30 Sodium 135 mmol/l (132-148) 03/30/18 05:35 Potassium 4.2 MMOL/L (3.6-5.0) 03/30/18 05:35 Chloride 102 mmol/L (98-107) 03/30/18 05:35 Carbon Dioxide 26 mmol/L (22-30) 03/30/18 05:35 Anion Gap 11 (10-20) 03/30/18 05:35 BUN 7 mg/dl (7-17) 03/30/18 05:35 Creatinine 0.6 mg/dl (0.7-1.2) L 03/30/18 05:35 Est GFR ( Amer) > 60 03/30/18 05:35 Est GFR (Non-Af Amer) > 60 03/30/18 05:35 Random Glucose 89 mg/dL (65-105) 03/30/18 05:35 Lactic Acid 0.6 MMOL/L (0.7-2.1) L 03/28/18 21:19 Calcium 9.3 mg/dL (8.4-10.2) 03/30/18 05:35 Phosphorus 3.3 mg/dl (2.5-4.5) 03/29/18 05:30 Magnesium 2.4 MG/DL (1.6-2.3) H 03/30/18 05:35 Total Bilirubin 0.5 mg/dl (0.2-1.3) 03/30/18 05:35 AST 18 U/L (14-36) 03/30/18 05:35 ALT 16 U/L (9-52) 03/30/18 05:35 Alkaline Phosphatase 43 U/L (38-126) 03/30/18 05:35 Total Protein 7.0 G/DL (6.3-8.2) 03/30/18 05:35 Albumin 4.0 g/dL (3.5-5.0) 03/30/18 05:35 Globulin 3.0 gm/dL (2.2-3.9) 03/30/18 05:35 Albumin/Globulin Ratio 1.4 (1.0-2.1) 03/30/18 05:35 Urine Color Yellow (YELLOW) 03/28/18 15:45 Urine Clarity Cloudy (Clear) 03/28/18 15:45 Urine pH 8.0 (5.0-8.0) 03/28/18 15:45 Ur Specific [place] 1.025 (1.003-1.030) 03/28/18 15:45 Urine Protein 30 mg/dL (NEGATIVE) 03/28/18 15:45 Urine Glucose (UA) Neg mg/dL (NEGATIVE) 03/28/18 15:45 Urine Ketones 20 mg/dL (NEGATIVE) 03/28/18 15:45 Urine Blood Negative (NEGATIVE) 03/28/18 15:45 Urine Nitrate Negative (NEGATIVE) 03/28/18 15:45 Urine Bilirubin Negative (NEGATIVE) 03/28/18 15:45 Urine Urobilinogen 0.2-1.0 mg/dL (0.2-1.0) 03/28/18 15:45 Ur Leukocyte Esterase Neg [place]/uL (Negative) 03/28/18 15:45 Urine RBC (Auto) 3 /hpf (0-3) 03/28/18 15:45 Urine Microscopic WBC 3 /hpf (0-5) 03/28/18 15:45 Ur Squamous Epith Cells 11 /hpf (0-5) H 03/28/18 15:45 Urine Bacteria Many (<OCC) H 03/28/18 15:45 Hyaline Casts 0-2 /hpf (0-2) 03/28/18 15:45 Blood Type A POSITIVE 03/29/18 05:30 Blood Type Confirm A POSITIVE 03/29/18 09:31 Antibody Screen Negative 03/29/18 05:30 BBK History Checked No verified bt 03/29/18 05:30 - Hospital Course Hospital Course: 32 yo F with no known chronic conditions admitted due to intractable nausea, vomiting, and findings consistent with intussusception and colitis on CT. Pt presented to ED with nausea and nonbloody nonbilious vomiting, inability to tolerate PO intake, and intermittent mild-modertate cramping in mid-abdomen, left sided, as well as in LLQ. Pt also endorses that she had normal BMs at first but prior to coming to ED had diarrhea with blood. Pt states that she has had similar episodes in the past for a few years, but they self-resolved. She denied chest pain, difficulty breathing, issues with urination. CT abd/pelvis showed apparent mild circumferential mural thickening in the distal transverse and left hemicolon is nonspecific and could be related to underdistention, however nonspecific acute infectious/inflammatory colitis also consideration. Nonobstructing jejunal-jejunal intussusception in proximal jejunal loops in right mid-abdomen. Blood cultures were drawn - showed gram pos cocci; possible contaminant; were repeated. Pt was made NPO, abx started, surgery and GI were consulted. Plan was for OR, but gen surg held OR for GI eval - pt underwent EGD which showed medium-sized hiatal hernia, localized inflammation, no evidence of significant pathology in entire examined duodeum or proximal jejunum. Recommended upper GI series with small bowel follow through with SBFT. Pt then underwent KUB- found to have contrast in colon. As per surg recs and discussion w/ surgical residents, pt is to be started on reg diet, if tolerated, may be discharged with outpatient script for upper GI series with small bowel follow through, and instructions to follow up in office w/ Dr. Lemos (general surgeon). Her leukocytosis resolved, she remained afebrile since admission, and she currently shows no sign of infection. Pt seen this am with Dr. Whalen - all above discussed w/ patien and she verbalized understanding. Pt was started on reg diet, tolerated without difficulty. Her symptoms resolved during the course of the hospital stay. Discussed labs/results w/ Dr. Whalen - pt can be d/c with prescription for PO levaquin sent to pharmacy. She is aware to follow up within 1 week with surgeon, GI, PMD. Discharge Exam - Head Exam Head Exam: NORMAL INSPECTION - Eye Exam Eye Exam: Normal appearance - ENT Exam ENT Exam: Mucous Membranes Moist - Respiratory Exam Respiratory Exam: NORMAL BREATHING PATTERN - Cardiovascular Exam Cardiovascular Exam: REGULAR RHYTHM - GI/Abdominal Exam GI & Abdominal Exam: Soft. absent: Tenderness - Extremities Exam Extremities exam: normal inspection - Neurological Exam Neurological exam: Alert, Normal Gait, Oriented x3 - Psychiatric Exam Psychiatric exam: Normal Mood - Skin Skin Exam: Dry, Normal Color, Warm Discharge Plan - Discharge Medications Prescriptions: Levofloxacin [Levaquin] 500 mg PO DAILY #7 tablet - Follow Up Plan Condition: GOOD Disposition: HOME/ ROUTINE Instructions: Intussusception (DC) Additional Instructions: follow up with primary MD, surgeon, and GI 1 week Return to ED if febrile, or symptoms recur Referrals: Florencio Lemos MD [Staff Provider] - Franck Castaneda MD, PhD [Staff Provider] -
== END 2018-03-30 15:01 | disposition home or self-care (01) | DRG 390 ==
LOC: H.ER 13:38 → H.ERHOLD 20:33 → H.MEDSURG1 22:32
PROVIDERS: ADMIT Family Medicine; ATTEND Family Medicine
PROC: 0DB88ZX Excision of Small Intestine, Via Natural or Artificial Opening Endoscopic, Diagnostic (ICD-10-PCS; principal; 2018-03-28)
DX: K56.1 Intussusception (principal); F31.9 Bipolar disorder, unspecified; G43.909 Migraine, unspecified, not intractable, without status migrainosus; K44.9 Diaphragmatic hernia without obstruction or gangrene; K29.70 Gastritis, unspecified, without bleeding; Z87.891 Personal history of nicotine dependence; Z98.51 Tubal ligation status; K52.9 Noninfective gastroenteritis and colitis, unspecified